=== PATIENT | male | born 1945 | race Caucasian/White ===

== ENCOUNTER → 2017-04-08 | Outpatient (CLI) | payer OTHER, MEDICARE ==
[~2017-04-08] MED LIST: ASCORBIC ACID500 M2 PO; ASPIRIN PO; DICLOFENAC PO; FISH OIL 1,0001 CAP PO; FISH OIL 1,0001 EACH PO; LIPITOR PO; LOTREL 5-20 MG1 CAP PO; LOTREL 5/10 MG1 CAP PO; MULTI-VITAMIN1 TAB PO; NEPHROCAPS CAPSU1 MG PO; NEXIUM PO; OMEPRAZOLE20 M2 PO; ROZEREM8 MG PO; VIT C; VIT E PO
--- NOTE | ~2017-04-08 | TM ---
[id number] NAME: ANNIKA LOW MR#: [id number] PROCEDURE PERFORMED Treadmill stress test. DESCRIPTION Resting heart rate is 70. Resting blood pressure is 147/84 mmHg. Baseline EKG shows normal sinus rhythm. No significant ST-T wave changes. PROCEDURE The patient was made to exercise on a standard Antoni protocol. Total exercise time is 5 minutes, completing 2 minutes of stage 2 on a standard Antoni protocol. Test stopped because of significant shortness of breath. No complaints of chest pain. Maximal heart rate obtained is 144, which is 97% of maximum predicted heart rate. Maximal blood pressure obtained is 226/94 mmHg. Patient had 0.[address]-T wave changes noted diffusely. Patient had frequent single multifocal premature ventricular complexes and single premature atrial complex noted. There was a lot of artifact in the EKG tracings. CONCLUSION 1. Poor exercise tolerance. 2. There is no clinical, hemodynamic or EKG evidence of ischemia at poor workload (97% of maximum predicted heart rate, 7 METs). 3. Normal heart rate response. 4. The patient's baseline blood pressure was elevated at 149/84 mmHg, and the patient had hypertensive blood pressure response with minimal exercise with a peak blood pressure of 226/94 mmHg. 5. Normal regular treadmill stress test with poor baseline exercise tolerance for age and also baseline hypertension and hypertensive blood pressure response with exercise. Dictated by...
== END | disposition home or self-care (01) ==
LOC: CEKG 07:31
DX: R00.2 Palpitations (principal)
CPT/HCPCS: 93017